=== PATIENT | male | born 1955 | race African-American/Black ===

== ENCOUNTER 2018-04-02 22:00 | Emergency (ER) | payer OTHER ==
[~2018-04-02] VITALS: Ht 188 cm; Wt 127.0 kg
[2018-04-02 22:05] VITALS: BP 158/68
== END 2018-04-04 19:30 | disposition left against medical advice (07) ==
LOC: ER 22:00
DX: F10.129 Alcohol abuse with intoxication, unspecified (principal); Z53.21 Procedure and treatment not carried out due to patient leaving prior to being seen by health care provider; Y90.9 Presence of alcohol in blood, level not specified
CPT/HCPCS: 99283

== ENCOUNTER 2018-07-26 18:43 | Emergency (ER) | payer OTHER ==
[~2018-07-26] VITALS: Ht 185.4 cm; Wt 105.0 kg
[2018-07-26 19:16] VITALS: BP 120/43
[2018-07-26] MEDS ORDERED: ONDANSETRON HCL 4MG/2ML INJ IV STA (19:26)
[2018-07-26] MEDS ORDERED: SODIUM CHLORIDE 0.9% 1,000 ML IV ONE (19:26)
[2018-07-26] MEDS ORDERED: LORAZEPAM 2MG/ML CPJ IV ONE (19:30)
[2018-07-26] MEDS ORDERED: LORAZEPAM 2MG/ML CPJ IM ONE (19:45)
== END 2018-07-26 19:37 | disposition left against medical advice (07) ==
LOC: ER 19:00
DX: G40.909 Epilepsy, unspecified, not intractable, without status epilepticus (principal); R41.0 Disorientation, unspecified; F10.229 Alcohol dependence with intoxication, unspecified; Y90.9 Presence of alcohol in blood, level not specified; F17.210 Nicotine dependence, cigarettes, uncomplicated
CPT/HCPCS: 99283; J7030

== ENCOUNTER 2019-07-30 10:38 | Emergency (ER) | payer OTHER ==
[~2019-07-30] VITALS: Ht 177.8 cm; Wt 113.0 kg
[2019-07-30] MEDS ORDERED: LORAZEPAM 2MG/ML CPJ IM STA (11:17)
[2019-07-30] MEDS ORDERED: DIPHENHYDRAMINE 50MG/ML VIAL IM STA (11:17)
[2019-07-30] MEDS ORDERED: HALOPERIDOL LACTATE 5MG/ML VIAL IM ONE ×2 (11:30→20:30)
[2019-07-30 12:05] LABS: EOSINOPHILS % 2.6 % (0.0-5.0); HEMATOCRIT. 40.4 % (42.0-52.0); LYMPHOCYTES % 26.4 % (20.0-50.0); MEAN CORPUSCULAR HEMOGLOBIN 24.9 pg (28.0-32.0); MEAN CORPUSCULAR VOLUME 77.1 fL (80.0-94.0); MEAN PLATELET VOLUME 8.4 fl (7.4-10.4); MONOCYTES % 8.7 % (2.0-8.0); NEUTROPHILS % 61.3 % (40.0-76.0); PLATELET 283 x1000/uL (130-400); RED BLOOD CELL COUNT 5.24 mill/uL (4.7-6.1); RED CELL DISTRIBUTION WIDTH 18.9 % (11.6-14.6)
[2019-07-30 12:08] LABS: CLARITY URINE CLOUDY (CLEAR); COLOR URINE YELLOW (YELLOW); KETONES URINE TRACE (NEGATIVE); LEUKOCYTE ESTERASE URINE TRACE (NEGATIVE); NITRITE URINE NEGATIVE (NEGATIVE); OCCULT BLOOD URINE 3+ (NEGATIVE); PH URINE 5.5 (4.5-8.0); PROTEIN URINE TRACE (NEGATIVE); SPECIFIC GRAVITY URINE 1.031 (1.005-1.030)
[2019-07-30 12:08] LABS: CHLORIDE 106 mEq/L (98-107)
[2019-07-30 12:13] LABS: ETHANOL BLOOD < 10 mg/dL
[2019-07-30 12:43] LABS: *AMPHETAMINES SCREEN URINE NEGATIVE (NEGATIVE); *BARBITURATES SCREEN URINE NEGATIVE (NEGATIVE); *BENZODIAZEPINES SCREEN URINE NEGATIVE (NEGATIVE); *COCAINE SCREEN URINE NEGATIVE (NEGATIVE); METHADONE URINE SCREEN NEGATIVE (NEGATIVE); OPIATES URINE SCREEN NEGATIVE (NEGATIVE)
[2019-07-30 12:44] LABS: CANNABINOID URINE SCREEN NEGATIVE (NEGATIVE); PHENCYCLIDINE URINE SCREEN PRESUMTIVE POSITIVE (NEGATIVE)
[2019-07-30 19:39] LABS: CHLORIDE 107 mEq/L (98-107)
[2019-07-30] MEDS ORDERED: LORAZEPAM 2MG/ML CPJ IM ONE (20:30)
[2019-07-31] MEDS ORDERED: HALOPERIDOL LACTATE 5MG/ML VIAL IM ONE ×2 (04:15→08:45)
[2019-07-31] MEDS ORDERED: LORAZEPAM 2MG/ML CPJ IM PRN (09:45)
[2019-07-31] MEDS: DIPHENHYDRAMINE 50MG/ML VIAL IM PRN (09:48)
[2019-07-31] MEDS ORDERED: ACETAMINOPHEN 325MG TABLET PO ONE (21:15)
[2019-08-01] MEDS ORDERED: OLANZAPINE 10 MG/VIAL IM ONE (00:30)
[2019-08-01] MEDS ORDERED: LORAZEPAM 2MG/ML CPJ IM SCH (01:45)
[2019-08-01] MEDS ORDERED: HALOPERIDOL 5MG TABLET PO SCH (05:30)
[2019-08-01] MEDS ORDERED: LORAZEPAM 2MG/ML CPJ IM ONE (14:00)
[2019-08-01] MEDS ORDERED: HALOPERIDOL LACTATE 5MG/ML VIAL IM ONE (14:00)
[2019-08-01] MEDS: DIPHENHYDRAMINE 50MG/ML VIAL IM PRN (14:11)
[2019-08-01 15:31] VITALS: BP 136/64
== END 2019-08-01 17:01 ==
LOC: ER 10:46
DX: F16.159 Hallucinogen abuse with hallucinogen-induced psychotic disorder, unspecified (principal); Z78.1 Physical restraint status; I10 Essential (primary) hypertension; F10.20 Alcohol dependence, uncomplicated; Y90.0 Blood alcohol level of less than 20 mg/100 ml; Z75.1 Person awaiting admission to adequate facility elsewhere
CPT/HCPCS: 36415; 71045; 80048; 80053; 80305; 80320; 81003; 85025; 93005; 96372; 99285; J1200; J1630; J2060; J3490; G0480

== ENCOUNTER 2019-08-07 03:37 | Emergency (ER) | payer OTHER ==
[~2019-08-07] VITALS: Ht 177.8 cm; Wt 114.0 kg
[2019-08-07] MEDS ORDERED: FUROSEMIDE 20MG/2ML VIAL IVP ONE (04:00)
[2019-08-07 04:30] VITALS: BP 135/75
[2019-08-07 04:39] LABS: BASOPHILS % 0.5 % (0.0-2.0); EOSINOPHILS % 4.3 % (0.0-5.0); HEMATOCRIT. 36.9 % (42.0-52.0); HEMOGLOBIN. 12.2 g/dL (14.0-18.0); LYMPHOCYTES % 27.2 % (20.0-50.0); MEAN CORPUSCULAR VOLUME 75.5 fL (80.0-94.0); MEAN PLATELET VOLUME 8.7 fl (7.4-10.4); MONOCYTES % 10.9 % (2.0-8.0); NEUTROPHILS % 57.1 % (40.0-76.0); PLATELET 256 x1000/uL (130-400); RED BLOOD CELL COUNT 4.89 mill/uL (4.7-6.1); RED CELL DISTRIBUTION WIDTH 18.1 % (11.6-14.6)
[2019-08-07 04:45] LABS: CHLORIDE 106 mEq/L (98-107)
== END 2019-08-07 05:26 | disposition left against medical advice (07) ==
LOC: ER 03:37
DX: R60.0 Localized edema (principal); M79.89 Other specified soft tissue disorders; I11.0 Hypertensive heart disease with heart failure; I50.9 Heart failure, unspecified; E78.00 Pure hypercholesterolemia, unspecified; F19.10 Other psychoactive substance abuse, uncomplicated
CPT/HCPCS: 36415; 71045; 80053; 83880; 84484; 85025; 93005; 99285

== ENCOUNTER 2019-10-01 18:34 | Emergency (ER) | payer OTHER ==
[~2019-10-01] VITALS: Ht 188 cm; Wt 113.0 kg
[2019-10-01 18:37] VITALS: BP 130/47
[2019-10-01] MEDS ORDERED: LIDOCAINE HCL 1% 20ML VIAL (Pyxis) INJ INFIL ONE (19:30)
[2019-10-01] MEDS ORDERED: TETANUS, DIPHTHERIA, PERTUSSIS VAC/PF 0.5ML (>7YR OLD) IM ONE (20:15)
== END 2019-10-01 20:44 | disposition home or self-care (01) ==
LOC: ER 18:34
DX: S01.01XA Laceration without foreign body of scalp, initial encounter (principal); I11.0 Hypertensive heart disease with heart failure; I50.9 Heart failure, unspecified; E78.00 Pure hypercholesterolemia, unspecified; X99.0XXA Assault by sharp glass, initial encounter; Y93.89 Activity, other specified; Y92.018 Other place in single-family (private) house as the place of occurrence of the external cause
CPT/HCPCS: 12004; 90471; 90715; 99283; J3490

== ENCOUNTER 2019-10-16 10:48 | Emergency (ER) | payer OTHER ==
[~2019-10-16] VITALS: Ht 177.8 cm; Wt 78.0 kg
[2019-10-16 11:30] VITALS: BP 145/50
== END 2019-10-16 11:33 | disposition home or self-care (01) ==
LOC: ER 10:58
DX: S01.81XD Laceration without foreign body of other part of head, subsequent encounter (principal); X58.XXXD Exposure to other specified factors, subsequent encounter; I11.0 Hypertensive heart disease with heart failure; I50.9 Heart failure, unspecified; E78.00 Pure hypercholesterolemia, unspecified
CPT/HCPCS: 99281